=== PATIENT | female | born 1940 | race Caucasian/White ===

== ENCOUNTER 2016-12-19 08:02 | Emergency (ER) | payer MEDICARE, BC ==
[~2016-12-19 08:02] MED LIST: ASPIRIN325 MG; ASPIRIN325 MG PO; CALCIUM + D T1 UDTAB; EFFER-K 10 MEQ10 MEQ PO; ESTRACE1 MG; ESTRADIOL TD; ESTRADIOL0.5 M2 PO; FISH OIL1 CAP; LASIX20 MG; LASIX20 MG PO; LISINOPRIL2.5 M1 PO; LISINOPRIL5 MG; LUNESTA3 MG PO; MULTIVITAMIN1 TAB; OMEPRAZOLE40 M2 PO; PAXIL20 MG; PAXIL20 MG PO; POTASSIUM CHLO10 MEQ; POTASSIUM CHLO10 MEQ PO; PRILOSEC20 MG; SENNA8.6 M1 PO; SIMVASTATIN20 MG PO; TRICOR160 MG; TRICOR160 MG PO; VIVELLE DO TD
[2016-12-19] MEDS ORDERED: CARAFATE1 G2 PO (08:14)
[2016-12-19] MEDS ORDERED: AMITIZA8 MC1 PO (08:15)
[2016-12-19] MEDS ORDERED: PRAVASTATIN SOD80 M1 PO (08:15)
[2016-12-19 08:56] LABS: BASO % 0.3 % (0-2); EOS % 0.2 % (0-7); HCT-HEMATOCRIT 45.2 % (34.0-49.0); HGB-HEMOGLOBIN 15.4 gm/dl (12.0-15.5); IMMATURE GRANULOCYTES ABSOLUTE 0.05 tho/cmm (0-0.03); IMMATURE GRANULOCYTES PERCENT 0.3 % (0-0.3); LYMPH % 11.8 % (20-45); LYMPH ABSOLUTE COUNT 1.9 tho/cmm (0.8-4.5); MCH (MEAN CORPUSCULAR HGB) 31.5 pg (28.0-32.0); MCHC MEAN CORPUSCULAR HGB CONC 34.1 % (32.0-36.0); MCV (MEAN CELL VOLUME) 92.4 fl (82.0-96.0); MEAN PLATELET VOLUME 10.3 cmc (9.4-12.4); MONO % 3.6 % (0-12); MONOCYTE ABSOLUTE COUNT 0.6 tho/cmm (0.0-1.2); NEUTROPHIL ABSOLUTE COUNT 13.4 tho/cmm (1.6-8.0); NEUTROPHIL-AUTOMATED 13.4 tho/cmm (1.6-8.0); NEUTROPHILS % 83.8 % (40-80); PLATELET COUNT 245 tho/cmm (150-450); RED BLOOD COUNT 4.89 mil/cmm (4.00-5.20); RED CELL DISTRIBUTION WIDTH 14.2 % (12.4-16.4)
[2016-12-19 09:00] LABS: INR 0.9 INR (0.9-1.1); PROTHROMBIN TIME 10.5 SECONDS (9.0-13.6)
[2016-12-19 09:28] LABS: ALBUMIN 3.6 g/dl (3.5-5.0); ALKALINE PHOSPHATASE 54 U/L (33-138); ALT/SGPT 29 U/L (12-78); ANION GAP 24 mmol/L (0-20); AST/SGOT 29 U/L (10-40); BILIRUBIN,TOTAL 0.6 mg/dl (0-1.5); BLOOD UREA NITROGEN 17 mg/dl (6-24); CALCIUM 8.9 mg/dl (8.5-10.5); CARBON DIOXIDE-VENOUS 21 mmol/L (22-32); CHLORIDE 97 mmol/l (96-110); CREATININE 1.15 mg/dl (0.50-1.10); GLUCOSE 223 mg/dL (70-110); LIPASE 166 U/L (73-393); POTASSIUM 3.3 mmol/L (3.7-5.1); SODIUM 139 mmol/L (135-145); eGFR VALUE FOR BLACK 54 mL/Min
[2016-12-19] MEDS ORDERED: ASPIRIN81 M1 PO (09:36)
[2016-12-19] MEDS ORDERED: NYSTATIN100000 UNI SSW (09:37)
[2016-12-19] MEDS ORDERED: NEURONTIN300 M1 PO (09:46)
[2016-12-19 09:49] LABS: PROCALCITONIN <0.05 ng/ml (0.05-0.09)
[2016-12-19 13:24] LABS: ARTERIAL BLD GAS O2 SATURATION 86 % (95-98)
[2016-12-19 13:25] LABS: ABG CO2 ARTERIAL 22 mmol/L (21-27); ARTERIAL BLOOD GAS PCO2 67 mmHg (32-45); ARTERIAL PO2 70 mmHg (70-100); BICARBONATE 20 mmol/L (21-28); BLOOD GAS BASE EXCESS -12 mM/L (-/+3)
[2016-12-19 13:26] LABS: PH 7.09 Units (7.35-7.45)
== END 2016-12-19 10:25 | disposition other institution (70) ==
LOC: EDMED 08:02
PROVIDERS: Emergency Medicine
DX: J98.2 Interstitial emphysema (principal); J96.90 Respiratory failure, unspecified, unspecified whether with hypoxia or hypercapnia; K22.3 Perforation of esophagus; I10 Essential (primary) hypertension; E78.5 Hyperlipidemia, unspecified; K21.9 Gastro-esophageal reflux disease without esophagitis
CPT/HCPCS: J0330; J1170; J2060; J2543; J2704; J7030; Q9967